=== PATIENT | female | born 1995 | race African-American/Black ===

== ENCOUNTER 2017-08-15 10:31 | Emergency (ER) | payer MEDICAID ==
[~2017-08-15] VITALS: Ht 162.6 cm; Wt 67.6 kg
[2017-08-15 10:31] VITALS: BP_SYST 126
[2017-08-15] MEDS ORDERED: AZITHROMYCIN 250 MG TABLET PO ONE (11:00)
[2017-08-15] MEDS ORDERED: IBUPROFEN 800 MG TABLET PO ONE (11:00)
[2017-08-15 11:18] VITALS: BP_SYST 121
== END 2017-08-15 11:18 | disposition home or self-care (01) ==
LOC: SED 10:31
DX: J06.9 Acute upper respiratory infection, unspecified (principal); R19.7 Diarrhea, unspecified
CPT/HCPCS: 99283; Q0144

== ENCOUNTER 2019-08-14 11:31 | Emergency (ER) | payer MEDICAID ==
[~2019-08-14] VITALS: Ht 167.6 cm; Wt 65.3 kg
[2019-08-14] MEDS ORDERED: DAYQUIL PO (11:37)
[2019-08-14] MEDS ORDERED: [UNRECOGNIZED DRUG - OTHER] PO (11:37)
[2019-08-14 11:38] VITALS: BP_SYST 115
--- NOTE | 2019-08-14 11:46 | NUR ---
PATIENT TO WAITING ROOM, STABLE; UNCHANGED
--- NOTE | 2019-08-14 11:50 | NUR ---
PT CAME TO ER FOR MURILLO, BODY ACHE, AND FEVER. SHE IS RESTING IN GURNEY WITH MOTHER AT BEDSIDE.
--- NOTE | 2019-08-14 11:50 | NUR ---
Patient to ER bed 3 to gown for evaluation. Side rails up.
--- NOTE | 2019-08-14 12:00 | NUR ---
PAUL Burleson at bedside examining patient.
[2019-08-14] MEDS ORDERED: KETOROLAC TROMETHAMINE 30 MG VIAL IM ONE (13:15)
--- NOTE | 2019-08-14 13:30 | NUR ---
PT RESTING IN BED NO S/S OF DISTRESS NOTED AT THIS TIME.
[2019-08-14] MEDS ORDERED: OSELTAMIVIR PHOSPHATE 75 MG CAPSULE PO ONE (14:00)
[2019-08-14 14:10] VITALS: BP_SYST 115
--- NOTE | 2019-08-14 14:10 | NUR ---
Patient given written and verbal discharge instructions and verbalizes understanding. ER MD discussed with patient the results and treatment provided. Patient in stable condition. ID arm band removed. Rx of TAMIFLU given. Patient educated on pain management and to follow up with PMD. Pain Scale 3. Opportunity for questions provided and answered. Medication side effect fact sheet provided.
== END 2019-08-14 14:10 | disposition home or self-care (01) ==
LOC: SED 11:31
DX: J10.1 Influenza due to other identified influenza virus with other respiratory manifestations (principal); R50.9 Fever, unspecified; R51 Headache
CPT/HCPCS: 36415; 86710; 96372; 99283; G9035; J1885

== ENCOUNTER 2021-05-18 09:44 | Emergency (ER) | payer MEDICAID ==
[~2021-05-18] VITALS: Ht 165.1 cm; Wt 68.0 kg
[~2021-05-18 09:44] MED LIST: DAYQUIL PO; [UNRECOGNIZED DRUG - OTHER] PO
[2021-05-18 09:50] VITALS: BP_SYST 148
--- NOTE | 2021-05-18 09:53 | NUR ---
Pt. came in to be evaluated for a possible tampon left inside from 2 days ago, pt. is finishing her period and remembers 2 days ago putting in a tampon but does not recall taking it out, has been having lower abd. pain/cramping on and off 08/18 which is abnormal for her
--- NOTE | 2021-05-18 09:55 | NUR ---
Patient to ER bed 7 to gown for evaluation. Side rails up. Report given to CHANTELL URIBE.
--- NOTE | 2021-05-18 10:05 | NUR ---
ER at bedside examining patient.
--- NOTE | 2021-05-18 10:33 | NUR ---
Vaginal and speculum exam done by Dr. hermosillo, pt. tolerated well, no tampon seen
--- NOTE | 2021-05-18 11:15 | NUR ---
Patient given written and verbal discharge instructions and verbalizes understanding. ER MD discussed with patient the results and treatment provided. Patient in stable condition. ID arm band removed. Pain Scale 0. Opportunity for questions provided and answered.
[2021-05-18 11:16] VITALS: BP_SYST 130
== END 2021-05-18 11:15 | disposition home or self-care (01) ==
LOC: SED 09:44
DX: T19.2XXA Foreign body in vulva and vagina, initial encounter (principal); X58.XXXA Exposure to other specified factors, initial encounter; Y93.89 Activity, other specified; Y92.89 Other specified places as the place of occurrence of the external cause; Y99.8 Other external cause status
CPT/HCPCS: 99284

== ENCOUNTER 2021-08-22 13:17 | Emergency (ER) | payer MEDICAID ==
[~2021-08-22] VITALS: Ht 165.1 cm; Wt 72.6 kg
[2021-08-22 13:45] VITALS: BP_SYST 130
--- NOTE | 2021-08-22 14:00 | NUR ---
pt bib mother states 6 weeks , when taking a shower this am pt noticed lots of blood and tiisue and clots. pt triaged vss awaiting md to see
--- NOTE | 2021-08-22 15:21 | NUR ---
pt to ultra sound
[2021-08-22 16:31] LABS: BASOPHILS # (AUTO) 0.1 K/uL (0.0-0.2); BASOPHILS % (AUTO) 0.9 % (0.0-2.0); EOSINOPHILS # (AUTO) 0.2 K/uL (0.0-0.4); EOSINOPHILS % (AUTO) 2.7 % (0.0-4.0); HEMATOCRIT 32.7 % (36-48); HEMOGLOBIN 10.5 g/dL (12.0-16.0); MEAN CORPUSCULAR HEMOGLOBIN 25 pg (27-31); MEAN CORPUSCULAR HGB CONC 32 % (32-36); MEAN CORPUSCULAR VOLUME 77 fL (79.0-98.0); MONOCYTES # (AUTO) 0.7 K/uL (0.0-1.0); MONOCYTES % (AUTO) 9.1 % (1.7-9.3); NEUTROPHILS # (AUTO) 4.5 K/uL (1.8-7.7); NEUTROPHILS % (AUTO) 60.3 % (40.0-70.0); PLATELET COUNT (AUTO) 284 K/uL (130-430); RED BLOOD CELL COUNT(AUTO) 4.27 MIL/uL (4.2-6.2); RED CELL DISTRIBUTION WIDTH 14.8 % (9.0-15.0); WHITE BLOOD COUNT (AUTO) 7.4 K/uL (4.8-10.8)
[2021-08-22 16:47] LABS: CALCIUM 9.6 mg/dL (8.4-11.0); CREATININE 0.91 mg/dL (0.55-1.30); POTASSIUM 3.5 mmol/L (3.5-5.1)
[2021-08-22 17:16] LABS: ALBUMIN 3.6 g/dL (3.4-4.8); TOTAL BILIRUBIN 0.5 mg/dL (0.0-1.0)
[2021-08-22 18:09] VITALS: BP_SYST 128
--- NOTE | 2021-08-22 18:19 | NUR ---
Patient given written and verbal discharge instructions and verbalizes understanding. PAUL mayo MD discussed with patient the results and treatment provided. Patient in stable condition. ID arm band removed. Patient educated on pain management and to follow up with PMD. Pain Scale 0. Opportunity for questions provided and answered. Medication side effect fact sheet provided.
== END 2021-08-22 18:09 | disposition home or self-care (01) ==
LOC: SED 13:17
DX: O03.9 Complete or unspecified spontaneous abortion without complication (principal); Z3A.01 Less than 8 weeks gestation of pregnancy
CPT/HCPCS: 36415; 76801; 76817; 80053; 81002; 81025; 84702; 85025; 86870; 86886; 86900; 86901; 99284